=== PATIENT | female | born 1995 | race Caucasian/White ===

== ENCOUNTER 2024-04-03 22:33 | Observation (INO) | payer OTHER, SELFPAY ==
[2024-04-03] VITALS (8 sets, daily range): BP systolic 88–106; BP diastolic 49–66; BMI 28.9
[2024-04-03 17:37] LABS: % Basophils 0.5 % (0-2); % Eosinophils 4.3 % (0-6); % Immature Granulocytes 0.2 % (0-0.5); % Lymphocytes 33.5 % (20.5-51.1); % Monocytes 7.4 % (1.7-9.3); % Neutrophils 54.1 % (42.2-75.2); Absolute Eosinophils 0.3 10^3/uL (0-0.7); Absolute Lymphocytes 2.1 10^3/uL (1.2-3.4); Absolute Monocytes 0.5 10^3/uL (0.1-0.6); Absolute Neutrophils 3.4 10^3/uL (1.4-6.5); Hematocrit 36.1 % (37.0-47.0); Mean Corp Hgb Conc. 33.2 g/dL (33.0-37.0); Mean Corpuscular Hgb 28.9 pg (27.0-31.0); Mean Platelet Volume 8.7 fL (7.4-10.4); Nucleated Red Blood Cells % 0 %; Platelet Count 288 10^3/uL (130-400); Red Blood Cell Count 4.15 10^6/uL (4.20-5.40); Red Cell Dist. Width 12.8 % (11.5-14.5); White Blood Cell Count 6.3 10^3/uL (4.8-10.8)
[2024-04-03 17:47] LABS: HCG, Serum Qualitative Screen Negative
[2024-04-03 17:51] LABS: ALT (SGPT) 13 U/L (0-35); AST (SGOT) 22 U/L (14-36); Albumin 4.2 g/dl (3.5-5.0); Alkaline Phosphatase 54 U/L (38-126); Blood Urea Nitrogen 13 mg/dl (7-17); Calcium 9.1 mg/dl (8.4-10.2); Carbon Dioxide 28 mmol/L (22-30); Chloride 102 mmol/L (98-107); Glucose 104 mg/dl (70-99); Potassium 4.2 mmol/L (3.5-5.1); Sodium 141 mmol/L (135-145); Total Bilirubin 0.1 mg/dl (0.2-1.3); Total Protein 7.4 g/dl (6.3-8.2); eGFR > 60.00
[2024-04-03] MEDS: NSS 500 IV (19:05)
--- NOTE | 2024-04-03 19:16 | ED.GENMED ---
History of Present Illness
General
Chief Complaint: Breathing Problem
Source: patient and family (Mother)
Exam Limitations: none
Time Seen by Provider: 04/03/24 18:28
History of Present Illness
History of Present Illness:
28-year-old female started with respiratory symptoms about a week ago. Cough congestion. Seen in urgent care. Questionable diagnosis of pneumonia. Started on amoxicillin. 3 days later symptoms persisted and was changed to a cephalosporin.
However symptoms of not improved with ongoing cough some shortness of breath. No true pleuritic pain.
Past History
Past History
ED Past Medical History: Hypothyroidism
ED Past Surgical History: None
Social History
Tobacco: Non-smoker
Alcohol: None
Drug: None
Personal:
Living: with family
Employment: Employed
Family History
Family History: Other (Grandmother with appendicitis at age 26)
Review of Systems
Review of Systems
All Other Systems: Not applicable
Constitutional: Reports fever and chills
Respiratory: Denies hemoptysis
Cardiac: Reports no symptoms
ABD/GI: Reports no symptoms
Phy Exam
Physical Exam
Physical Exam:
GENERAL: Alert and oriented in no apparent distress
EYE: Orbits normal.
NECK: Supple, no significant adenopathy.
ENT: Pharynx without erythema
CARDIAC: Regular rate and rhythm without any obvious murmurs.
LUNGS: No respiratory distress. No wheezing or rhonchi. Rales in the left base
ABDOMEN: Soft, without focal tenderness or distention
NEUROLOGICAL: Alert and oriented , grossly non-focal
SKIN: Warm and dry, no rash or lesion, no discoloration, skin intact.
MUSCULOSKELETAL: No edema,no deformity.Good color
PSYCH: Normal and appropriate interaction.. But does appear mildly weak
Course
Orders/Labs/Results
Orders:
Orders
04/03/24 17:17
Test Result ONCE
04/03/24 17:24
Complete Blood Count/With Diff Urgent
Comprehensive Metabolic Panel Urgent
HCG, Serum Qualitative Screen Urgent
04/03/24 18:36
IV Insert/Care/Rem.- Treatment PRN
0.9% Sodium Chloride 500 ml [Nss] 500 ml IV BOLUS
04/03/24 18:38
CXR2 [CR Chest - 2 Views ] Urgent
Comment:
Reason For Exam: cough sob. ?pneumonia
04/03/24 19:00
COVID-19 Antigen Urgent
Source: Nasal Swab
D-Dimer Urgent
Influenza A+B Rapid Molecular Urgent
KAREN Source: Nasal Swab
Specimen Description:
04/03/24 21:25
Azithromycin 500 mg/250 ml [Zithromax Infusion] 500 mg in 250 ml IV NOW
CefTRIAXone [Rocephin] 1,000 mg IV NOW STA
Abnormal Lab Results
04/03/24
17:24
RBC 4.15 L 10^6/uL
(4.20-5.40)
Hct 36.1 L %
(37.0-47.0)
Glucose 104 H mg/dl
(70-99)
Total Bilirubin 0.1 L mg/dl
(0.2-1.3)
04/03/24 17:24
04/03/24 17:24
Vital Signs
Initial and Last Documented VS:
Initial Vital Signs
Temp Pulse Resp BP Pulse Ox
98.6 F 72 18 106/66 94
04/03/24 17:07 04/03/24 17:07 04/03/24 17:07 04/03/24 17:07 04/03/24 17:07
Last Documented Vital Signs
Temp Pulse Resp BP Pulse Ox
98.6 F 72 18 94/55 95
04/03/24 17:07 04/03/24 17:07 04/03/24 17:07 04/03/24 18:39 04/03/24 18:45
MDM/Problems Addressed
Differential Diagnosis Includes:
Suspicion for ongoing left lower lobe pneumonia. Await chest x-ray. Doubt pulmonary emboli. Although D-dimer was ordered. Workup in progress
*Radiology
Radiology exam reviewed: preliminary read by ED provider (Right subhilar infiltrate)
*Pulse Oximetry
Patient hypoxic: no
*Critical Care Note
Total Time (30-74mins, 75-104mins- exclusive of procedures): Not Applicable
Update Note
Update Note:
Patient with persistent pneumonia symptoms. Not improving on oral antibiotics. Generally very weak. Warrants admission for failed outpatient management
ED Attending Note
-
Portions of this chart may have been created with voice recognition software.� Occasional wrong word or��sound alike� substitutions may have occurred due to the inherent limitations of voice recognition software.
Discharge Plan
Departure
Patient Disposition: Admit
Date of Disposition: 04/03/24
Time of Disposition: 21:27
Presentation/result/management discussed w/ accepting MD/DO: Hospitalist
Discharge Problem:
Persistent pneumonia, Failed outpatient management
Prescriptions:
No Action
levothyroxine [Synthroid] 150 MCG tablet
50 mcg PO DAILY
terconazole 0.8 % cream
1 appful vaginal HS 3 Days Qty: 20 0RF
Referrals:
NONE,* [Family Provider] -
Interventions
Interventions:
*General Assessment Last Done: 04/03/24 17:07
*Neglect/Abuse Screening Last Done: 04/03/24 17:07
ED- Fall Risk Assessment Last Done: 04/03/24 18:32
*ED COVID-19 Vaccine History Last Done: 04/03/24 18:32
ED- Cardiac Assessment Last Done: 04/03/24 18:32
ED- Pulmonary Assessment Last Done: 04/03/24 18:32
Discharge Date and Time
Print Language: BHUTANESE
[2024-04-03 19:38] LABS: D-Dimer 0.43 ug/mlFEU (0.00-0.50)
[2024-04-03 19:39] LABS: COVID-19 Antigen Negative (Negative)
[2024-04-03] MEDS: ROCEPHIN 1000 MG IV (21:54)
[2024-04-03] MEDS: FLUSH (NSS) 1 FLUSH IV (22:14)
[2024-04-03] MEDS: ZITHROMAX INFUSION 250 IV (22:15)
--- NOTE | 2024-04-03 22:29 | HPS.HSE ---
Family Physician
-
Family Physician: * NONE
Chief Complaint
-
Cough and SOB
History of Present Illness
This 28-year-old female who has a past medical history of hypothyroidism and has otherwise been healthy who presents to the emergency department with persistent respiratory symptoms after evaluation and treatment for pneumonia in the outpatient
setting.
Patient reported that she and spouse developed upper respiratory symptoms about 1 week ago. She also had fevers and chills at that time. She was seen in urgent care and was thought to have bronchitis or early pneumonia. She was started on
amoxicillin. Patient reported that her symptoms got rapidly worse with the amoxicillin. She had chills cough and shortness of breath with fevers. She followed up 3 days later and was told that she had been developing lower lobe pneumonia at that
time. Antibiotics was changed to a cephalosporin. Patient reported symptoms persisted despite the antibiotics and she decided come to the emergency department today. She reports that she is still having fever. Cough is now nonproductive. Spouse
reported that he had similar symptoms 1 week ago and was treated with doxycycline with improvement. Patient denies any recent travels. She has no other sick contacts aside from family members. She has not been on antibiotics otherwise recently.
Denies any smoking history. She has no history of asthma.
In the emergency department she was afebrile, BP was 90s over 50s and she was satting 98% on room air. CBC was unremarkable. Electrolytes being and creatinine were also within normal limits. There appears to be a left lower lobe infiltrate on the
x-ray.
Medical History
Past Medical History
Past Medical History: Reports Hypothyroidism
Past Surgical History: Reports None
Social History
Tobacco: Non-smoker
Alcohol: None
Drug: None
Personal:
Living: With Family
Employment: Not Employed
Family History
Family History: Not pertinent
Allergies / Home Medications
Allergies reflects when Allergies were last updated in [facility].
Home Medications with original date entered in [facility]
Allergy/Medication List:
Allergies
Allergy/AdvReac Type Severity Reaction Status Date / Time
No Known Allergies Allergy Verified 04/03/24 17:07
Home Medications
levothyroxine 150 mcg tablet (Synthroid) 112 mcg PO DAILY Thyroid 09/19/20
Review of Systems
-
History Source: Patient and Family
Constitutional: Reports Fever
EENT: Reports No Symptoms
Respiratory: Reports Cough and Trouble Breathing
Cardiac: Reports No Symptoms
Abdomen/GI: Reports No Symptoms
: Reports No Symptoms
Musculoskeletal: Reports No Symptoms
Skin: Reports No Symptoms
Neurological: Reports No Symptoms
Endocrine: Reports No Symptoms
Hematologic/Lymphatic: Reports No Symptoms
Psych: Reports No Symptoms
Physical Exam
Vital Signs
Vital Signs
Temp Pulse Resp BP Pulse Ox
98.6 F 72 18 94/55 95
04/03/24 17:07 04/03/24 17:07 04/03/24 17:07 04/03/24 18:39 04/03/24 18:45
Physical Exam
General: Well Developed, Well Nourished, Comfortable and Conversant
HEENT: NormoCephalic, Anicteric, Moist mucous membranes, Atraumatic and PERRLA
Respiratory: Crackles (mild crackles at the left lower base)
Cardiac: S1/S2 and Regular Rhythm
Breast: Deferred by me
GI: Soft, Non Tender, Non Distended and Normal Bowel Sounds
Rectal: Deferred by Provider
Genito-urinary: Deferred by me
Musculoskeletal: No Clubbing, No Cyanosis and No Edema
Skin: Warm
Neuro: AO x 3
Hematologic/Lymphatic: No Lymphadenopathy
Psych: Calm
Laboratory Results
-
04/03/24 17:24
04/03/24 17:24
Laboratory Results
Total Bilirubin 0.1 mg/dl (0.2-1.3) L 04/03/24 17:24
AST 22 U/L (14-36) 04/03/24 17:24
ALT 13 U/L (0-35) 04/03/24 17:24
Alkaline Phosphatase 54 U/L (38-126) 04/03/24 17:24
Data Reviewed
-
Diagnostic Radiology: Image Personally Visualized and interpreted
Lab Data: Labs Reviewed by me
Old Records: Reviewed
Impression/Plan
-
IMPRESSION:
Patient with ongoing cough, shortness of breath, fevers and chills despite 1 week of treatment in the outpatient setting for presumed pneumonia. Chest x-ray shows a left lower lobe mild opacity. She is well-appearing hemodynamically stable and
afebrile in the ED. She has no leukocytosis. Blood test otherwise unremarkable. She appears to may have developed a postviral pneumonia with persistent symptoms.
PLAN:
1. PNA - Possible post viral community acquired pneumonia. No alarm findings.
- admit to med.surg obs
- Iv ceftriaxone/azithromycin
- supportive care
- check procal
- if improvement within 24 hours can d/c on oral regimen
- check mrsa
DVT PPX - SCD
Code Status - Full Code
[2024-04-04] VITALS (9 sets, daily range): BP systolic 85–102; BP diastolic 54–59; BMI 28.3
[2024-04-04] MEDS: SYNTHROID 112 MCG PO (06:31)
[2024-04-04 06:45] LABS: Hematocrit 33.6 % (37.0-47.0); Mean Corp Hgb Conc. 32.7 g/dL (33.0-37.0); Mean Corpuscular Hgb 28.9 pg (27.0-31.0); Mean Corpuscular Volume 88.2 fL (81.0-99.0); Mean Platelet Volume 8.8 fL (7.4-10.4); Platelet Count 268 10^3/uL (130-400); Red Blood Cell Count 3.81 10^6/uL (4.20-5.40); Red Cell Dist. Width 12.6 % (11.5-14.5); White Blood Cell Count 6.4 10^3/uL (4.8-10.8)
[2024-04-04 07:05] LABS: Blood Urea Nitrogen 9 mg/dl (7-17); Calcium 8.7 mg/dl (8.4-10.2); Carbon Dioxide 26 mmol/L (22-30); Chloride 106 mmol/L (98-107); Estimated Creatinine Clearance 104 ml/min; Glucose 89 mg/dl (70-99); Potassium 4.2 mmol/L (3.5-5.1); Sodium 140 mmol/L (135-145); eGFR > 60.00
[2024-04-04 07:38] LABS: Procalcitonin < 0.05 ng/ml (0.0-0.25)
[2024-04-04] MEDS: VENTOLIN NEBULES 2.5 MG INH ×4 (08:44→20:30)
--- NOTE | 2024-04-04 09:06 | EDRN ---
Respiratory Therapist down and administered ventolin neb to pt.
--- NOTE | 2024-04-04 09:13 | EDRN ---
Diet ordered to start at 15:[address] Esquivel to see if pt needs to be NPO til 15:00. Pt is breast feeding.
--- NOTE | 2024-04-04 12:38 | W.PN.HOSP.TC ---
Today's Communication/Plan
-
monitor vitals
see plan
cw albuterol
cw abx
check CT chest
Assessment / Plan
Assessment / Plan
General: Well Developed, Well Nourished, Comfortable and Conversant
HEENT: NormoCephalic, Anicteric, Moist mucous membranes
Respiratory: Crackles (mild crackles at the left lower base)
Cardiac: S1/S2 and Regular Rhythm
GI: Soft, Non Tender, Non Distended and Normal Bowel Sounds
Musculoskeletal:No Edema
Neuro: AO x 3
Psych: Calm
Community-acquired pneumonia, suspect postviral
Associated bronchitis
covid,flu neg
reported fever of 103 at home; none here. monitor
Continue with ceftriaxone and azithromycin
Supportive care
Pro-Jann ordered
Failed outpatient antibiotics
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
Check CT chest
recent successful ; currently nursing
cw albuterol
History of autoimmune thyroiditis
Continue with Synthroid
DVT prophylaxis
SCDs
Full code
Anticipated Discharge: Within 24 hours
Subjective/Interval History
-
Date of Service: April 04, 2024
denies fever
Objective Data
-
Labs:
Laboratory Results
04/04/24
06:29
WBC 6.4
Hgb 11.0 L
Hct 33.6 L
Plt Count 268
Sodium 140
Potassium 4.2
Chloride 106
Carbon Dioxide 26
BUN 9
Creatinine 0.8
Glucose 89
Calcium 8.7
Vital Signs:
Vital Signs
Temp Pulse Resp BP Pulse Ox
98.4 F 65 18 96/58 95
04/04/24 11:27 04/04/24 11:27 04/04/24 11:27 04/04/24 11:27 04/04/24 11:27
[2024-04-04] MEDS: NSS 1000 IV (13:42)
--- NOTE | 2024-04-04 15:10 | EDRN ---
Pt is aware sputum spec is needed.
--- NOTE | 2024-04-04 17:47 | EDRN ---
Pt up and ambulating in room intermittently to go to BR and states tolerating ambulation well. This RN offered to order supper for pt but pt said spouse will be bringing something in for her. Spouse and pt's son just returned to visit w/ pt at this
time.
--- NOTE | 2024-04-04 20:30 | PTCARENOTE ---
Patient received from ED to [address] [place] [address] via wheel chair. Admission and assessment completed and documented. Pt oriented to the unit. Pt family is at the bedside. Call barron is within reach.
[2024-04-04] MEDS: ROCEPHIN 1000 MG IV (22:54)
[2024-04-04] MEDS: STERILE WATER FOR INJECTION 10 ML IV (22:54)
[2024-04-04] MEDS: ZITHROMAX INFUSION 250 IV (22:54)
[2024-04-05 06:00] VITALS: BMI 28.2
[2024-04-05] MEDS: SYNTHROID 112 MCG PO (06:02)
[2024-04-05 07:16] VITALS: BP 109/59
[2024-04-05] MEDS: VENTOLIN NEBULES 2.5 MG INH ×2 (07:28→11:05)
[2024-04-05 08:54] LABS: Hematocrit 35.5 % (37.0-47.0); Hemoglobin 11.4 g/dL (12.0-16.0); Mean Corp Hgb Conc. 32.1 g/dL (33.0-37.0); Mean Corpuscular Hgb 28.4 pg (27.0-31.0); Mean Corpuscular Volume 88.3 fL (81.0-99.0); Mean Platelet Volume 8.9 fL (7.4-10.4); Platelet Count 291 10^3/uL (130-400); Red Blood Cell Count 4.02 10^6/uL (4.20-5.40); Red Cell Dist. Width 12.7 % (11.5-14.5); White Blood Cell Count 4.8 10^3/uL (4.8-10.8)
--- NOTE | 2024-04-05 10:16 | W.PN.HOSP.TC ---
Today's Communication/Plan
-
Monitor vital signs see plan
Transition to p.o. cephalosporin and azithromycin
Discharge today
Currently without any complaints, no fever here. No leukocytosis.
Patient feels better for discharge today
Time of discharge 36 minutes
Assessment / Plan
Assessment / Plan
General: Well Developed, Well Nourished, Comfortable and Conversant
HEENT: NormoCephalic, Anicteric, Moist mucous membranes
Respiratory: Crackles (mild crackles at the left lower base)
Cardiac: S1/S2 and Regular Rhythm
GI: Soft, Non Tender, Non Distended and Normal Bowel Sounds
Musculoskeletal:No Edema
Neuro: AO x 3
Psych: Calm
Community-acquired pneumonia, suspect postviral
Associated bronchitis
Per patient her symptoms have markedly improved
covid,flu neg
reported fever of 103 at home; none here. monitor
Continue with ceftriaxone and azithromycin
Supportive care
Failed outpatient antibiotics
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
Check CT chest With mild left lower lobe pneumonia. 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
recent successful ; currently nursing
cw albuterol
History of autoimmune thyroiditis
Continue with Synthroid
DVT prophylaxis
SCDs
Full code
Anticipated Discharge: Today
Subjective/Interval History
-
Date of Service: April 05, 2024
denies pain
Objective Data
-
Labs:
Laboratory Results
04/05/24
08:05
WBC 4.8
Hgb 11.4 L
Hct 35.5 L
Plt Count 291
Vital Signs:
Vital Signs
Temp Pulse Resp BP Pulse Ox
97.8 F 62 18 109/59 96
04/05/24 07:16 04/05/24 07:30 04/05/24 07:30 04/05/24 07:16 04/05/24 07:30
I&O
04/04/24 04/05/24 04/06/24
06:59 06:59 06:59
Intake Total 250 / 250
Balance 250 / 250
[2024-04-05 10:25] LABS: % Basophils 0.2 % (0-2); % Eosinophils 3.6 % (0-6); % Immature Granulocytes 0.8 % (0-0.5); % Lymphocytes 50.2 % (20.5-51.1); % Monocytes 7.4 % (1.7-9.3); % Neutrophils 37.8 % (42.2-75.2); Absolute Eosinophils 0.2 10^3/uL (0-0.7); Absolute Lymphocytes 2.4 10^3/uL (1.2-3.4); Absolute Monocytes 0.4 10^3/uL (0.1-0.6); Absolute Neutrophils 1.8 10^3/uL (1.4-6.5); Nucleated Red Blood Cells % 0 %
--- NOTE | 2024-04-05 10:27 | W.DCSUMMARY ---
Discharge Summary
Discharge Data
Date of Admission: 04/03/24
Date of Discharge: 04/05/24
-
Pending Results: No
Hospital Course
28-year-old female with past medical history of autoimmune thyroiditis came to the hospital with ongoing shortness of breath and fever. Chest x-ray was consistent with persistent pneumonia. It was determined that patient likely had postviral
community-acquired bacterial pneumonia associated with acute bronchitis. COVID and flu was checked which was negative. Patient symptoms markedly improved with IV antibiotics. She did not had any fever while she was hospitalized. She also got a
CT of the chest which showed mild left lower lobe pneumonia along with old healed groundglass disease. Once her symptoms continue to improve, she was then discharged home with instructions to follow-up with all her physicians outpatient.
Discharge Plan
-
Patient Disposition: Home (Routine Discharge)
Discharge Diagnosis/Procedures: Community-acquired pneumonia, suspect postviral
Associated bronchitis
Diet: As tolerated
Activity: With assistance
Driving Restrictions: As prior to admission
Bathing Restrictions: None
Referrals:
NONE,* [Family Provider] - in less than 1 week
Prescriptions:
New
cefdinir 300 mg capsule
300 mg PO BID 4 Days Qty: 8 0RF
azithromycin 500 mg tablet
500 mg PO DAILY 4 Days Qty: 4 0RF
Probiotic 10 billion cell capsule
10,000 mmu cells PO DAILY Qty: 10 0RF
albuterol sulfate 90 mcg/actuation HFA aerosol inhaler
2 puff inhalation Q6H PRN (Reason: shortness of breath or wheezing) Qty: 6.7 0RF
Continued
levothyroxine [Synthroid] 150 MCG tablet
112 mcg PO DAILY
Discharge Orders:
Discharge Patient (As Directed); Ordered 04/05/24
Ordered By: Sheldon Esquivel
Discharge Date and Time
Discharge Date/Time: 04/05/24 11:57
Print Language: [id number]
--- NOTE | 2024-04-05 10:31 | CM ---
Met with pt and her at bedside
Pt reports she lives with her and 2 sons in a 3 story home; 4 steps to enter, 12 steps to 2nd fl. Has 1/2 bath on FF
Independent, homemaker, drives
DME - none
SNF/HH - no past hx
Has ride at discharge
PCP - does not have one. Plans to call [facility]ad[facility] to sched appt
Pharm - [facility]
Discussed OBS status and given letter
Plan - anticipate home no needs
[2024-04-05 11:00] VITALS: BP 101/60
== END 2024-04-05 11:57 | disposition home or self-care (01) ==
LOC: 2 SOUTH 22:33
PROVIDERS: Emergency Medicine; ADMITTING PHYSICIAN Internal Medicine; ATTENDING PHYSICIAN Internal Medicine; EMERGENCY PHYSICIAN Emergency Medicine
DX: J18.9 Pneumonia, unspecified organism (principal); J40 Bronchitis, not specified as acute or chronic; R06.02 Shortness of breath; R05.9 Cough, unspecified; R53.1 Weakness; R50.9 Fever, unspecified; N64.89 Other specified disorders of breast; E06.3 Autoimmune thyroiditis; D84.9 Immunodeficiency, unspecified; Z79.890 Hormone replacement therapy; Z11.52 Encounter for screening for COVID-19
CPT/HCPCS: 71046; 71250; 80048; 80053; 84145; 84703; 85025; 85027; 85379; 86140; 87070; 87205; 87502; 87811; 94640; 96361; 96365; 96375; 99284; G0378